=== PATIENT | female | born 1975 | race Caucasian/White ===

== ENCOUNTER 2018-04-19 22:55 | Inpatient (IN) | payer OTHER ==
[2018-04-19] MEDS ORDERED: LACTATED RINGER'S 1,000 ML IV (23:15)
[2018-04-19] MEDS ORDERED: LACTATED RINGER'S 1,000 ML IV* (23:30)
[2018-04-19] MEDS ORDERED: IBUPROFEN 600 MG TAB PO (23:30)
[2018-04-19] MEDS ORDERED: AMPICILLIN 2 GM/NS (PMX) 100 ML IV (23:30)
[2018-04-19] MEDS ORDERED: CARBOPROST 250 MCG INJ IM (23:30)
[2018-04-19] MEDS ORDERED: OXYTOCIN 30 UNITS/LR 500 ML IV (23:30)
[2018-04-19] MEDS ORDERED: MISOPROSTOL 200 MCG TAB PR (23:30)
[2018-04-19] MEDS ORDERED: METHYLERGONOVINE 0.2 MG INJ IM (23:30)
[2018-04-19] MEDS ORDERED: LIDOCAINE 1% (MPF) 30 ML INJ INJ (23:30)
[2018-04-19 23:44] LABS: ADD MAN DIFF? NO
[2018-04-19 23:51] LABS: WHITE BLOOD COUNT 11.6 10^3/ul (4.8-10.8)
[2018-04-19 23:51] LABS: BASOPHILS % 0.3 % (0.0-2.0); EOSINOPHILS # 0.1 10^3/ul (0.0-0.5); HEMATOCRIT 36.5 % (37.0-47.0); HEMOGLOBIN 12.2 g/dl (12.0-16.0); LYMPHOCYTES # 1.8 10^3/ul (0.8-2.9); LYMPHOCYTES % 15.4 % (15.0-51.0); MEAN CORPUSCULAR HEMOGLOBIN 29.6 pg (29.0-33.0); MEAN CORPUSCULAR HGB CONC 33.4 g/dl (32.0-37.0); MEAN CORPUSCULAR VOLUME 88.6 fl (82.0-101.0); MEAN PLATELET VOLUME 11.1 fl (7.4-10.4); MONOCYTE # 0.9 10^3/ul (0.3-0.9); MONOCYTES % 7.4 % (0.0-11.0); NEUTROPHIL # 8.7 10^3/ul (1.6-7.5); NEUTROPHILS % 74.9 % (39.0-77.0); PLATELET COUNT 174 10^3/UL (140-415); RED BLOOD COUNT 4.12 10^6/ul (4.20-5.40); RED CELL DISTRIBUTION WIDTH 12.7 % (11.5-14.5)
[2018-04-20 00:11] LABS: INR 0.83; PARTIAL THROMBOPLASTIN TIME 23.7 Sec (23.0-35.0); PROTIME 11.5 Sec (11.9-14.9); PT RATIO 0.9
[2018-04-20] MEDS: OXYTOCIN 30 UNITS/LR 500 ML IV ×2 (00:32→01:50)
[2018-04-20] MEDS: BUTORPHANOL 2 MG INJ IV (00:44)
[2018-04-20] MEDS: LIDOCAINE 0.5% (SDV) 50 ML INJ INFIL (00:44)
[2018-04-20 00:46] LABS: HEPATITIS B SURFACE ANTIGEN NEGATIVE (NEGATIVE)
[2018-04-20] MEDS ORDERED: OXYCODONE/ASPIRIN (4.88/325) TAB PO ×2 (03:00)
[2018-04-20] MEDS ORDERED: ZOLPIDEM 5 MG TAB PO (03:00)
[2018-04-20] MEDS ORDERED: OXYTOCIN 30 UNITS/LR 500 ML IV (03:00)
[2018-04-20] MEDS ORDERED: METHYLERGONOVINE 0.2 MG INJ IM (03:00)
[2018-04-20] MEDS ORDERED: CARBOPROST 250 MCG INJ IM (03:00)
[2018-04-20] MEDS ORDERED: MISOPROSTOL 200 MCG TAB PR (03:00)
[2018-04-20] MEDS ORDERED: AMPICILLIN 1 GM/NS (PMX) 50 ML IV (03:30)
[2018-04-20] MEDS: WITCH HAZEL/GLYCERIN PAD PR (04:05)
[2018-04-20] MEDS: LANOLIN 7 GM TUBE TOP (04:06)
[2018-04-20] MEDS: BENZOCAINE 20% 56 ML SPRAY TOP (04:06)
[2018-04-20] MEDS: IBUPROFEN 600 MG TAB PO ×3 (06:01→17:59)
[2018-04-20] MEDS: LEVOTHYROXINE 100 MCG TAB PO (06:01)
[2018-04-20 06:50] LABS: ADD MAN DIFF? NO
[2018-04-20 06:53] LABS: WHITE BLOOD COUNT 15.8 10^3/ul (4.8-10.8)
[2018-04-20 06:53] LABS: BASOPHILS % 0.1 % (0.0-2.0); EOSINOPHILS # 0.1 10^3/ul (0.0-0.5); EOSINOPHILS % 0.3 % (0.0-7.0); HEMATOCRIT 33.6 % (37.0-47.0); HEMOGLOBIN 11.2 g/dl (12.0-16.0); LYMPHOCYTES # 1.6 10^3/ul (0.8-2.9); MEAN CORPUSCULAR HEMOGLOBIN 29.4 pg (29.0-33.0); MEAN CORPUSCULAR HGB CONC 33.3 g/dl (32.0-37.0); MEAN CORPUSCULAR VOLUME 88.2 fl (82.0-101.0); MEAN PLATELET VOLUME 11.7 fl (7.4-10.4); MONOCYTE # 1.1 10^3/ul (0.3-0.9); MONOCYTES % 7.2 % (0.0-11.0); NEUTROPHIL # 12.9 10^3/ul (1.6-7.5); NEUTROPHILS % 81.7 % (39.0-77.0); PLATELET COUNT 160 10^3/UL (140-415); RED BLOOD COUNT 3.81 10^6/ul (4.20-5.40); RED CELL DISTRIBUTION WIDTH 12.7 % (11.5-14.5)
[2018-04-20 07:46] LABS: THYROID STIMULATING HORMONE 0.432 MIU/L (0.465-4.680)
[2018-04-20] MEDS: SENNA/DOCUSATE NA (8.6MG/50MG) TAB PO ×2 (09:21→21:19)
[2018-04-20 15:12] LABS: RAPID PLASMA REAGIN NONREACTIVE (NR)
[2018-04-21] MEDS: IBUPROFEN 600 MG TAB PO ×3 (00:29→12:25)
[2018-04-21 05:55] LABS: ADD MAN DIFF? NO
[2018-04-21 06:02] LABS: WHITE BLOOD COUNT 10.4 10^3/ul (4.8-10.8)
[2018-04-21 06:02] LABS: BASOPHIL # 0.1 10^3/ul (0.0-0.1); BASOPHILS % 0.5 % (0.0-2.0); EOSINOPHILS # 0.2 10^3/ul (0.0-0.5); EOSINOPHILS % 1.6 % (0.0-7.0); HEMATOCRIT 32.4 % (37.0-47.0); HEMOGLOBIN 10.8 g/dl (12.0-16.0); LYMPHOCYTES # 2.2 10^3/ul (0.8-2.9); LYMPHOCYTES % 21.3 % (15.0-51.0); MEAN CORPUSCULAR HEMOGLOBIN 29.8 pg (29.0-33.0); MEAN CORPUSCULAR HGB CONC 33.3 g/dl (32.0-37.0); MEAN CORPUSCULAR VOLUME 89.5 fl (82.0-101.0); MEAN PLATELET VOLUME 11.3 fl (7.4-10.4); MONOCYTE # 0.7 10^3/ul (0.3-0.9); NEUTROPHIL # 7.1 10^3/ul (1.6-7.5); NEUTROPHILS % 68.5 % (39.0-77.0); PLATELET COUNT 142 10^3/UL (140-415); RED BLOOD COUNT 3.62 10^6/ul (4.20-5.40)
[2018-04-21] MEDS: LEVOTHYROXINE 50 MCG TAB PO (06:29)
[2018-04-21] MEDS: SENNA/DOCUSATE NA (8.6MG/50MG) TAB PO (10:46)
[2018-04-21] MEDS: DIPHTH/TET/ACEL PERTUSS (ADULT) 0.5 ML VIAL IM* (12:26)
[2018-04-22] MEDS ORDERED: LEVOTHYROXINE 100 MCG TAB PO (06:00)
== END 2018-04-21 17:30 | disposition home or self-care (01) | DRG 807 ==
LOC: OBT 22:55 → PP1 04-20 03:31 → L-D 22:56 → OBT 23:10 → L-D 23:10
PROVIDERS: Obstetrics & Gynecology
PROC: 10E0XZZ Delivery of Products of Conception, External Approach (ICD-10-PCS; principal; 2018-04-20)
PROC: 0KQM0ZZ Repair Perineum Muscle, Open Approach (ICD-10-PCS; 2018-04-20)
DX: O70.1 Second degree perineal laceration during delivery (principal); Z37.0 Single live birth; Z3A.40 40 weeks gestation of pregnancy
CPT/HCPCS: 84443; 85025; 85610; 85730; 86592; 86850; 86900; 86901; 87340; 90686; 90715